=== PATIENT | male | born 1985 | race Two or more races ===

== ENCOUNTER 2024-10-08 17:25 | Emergency (ER) | payer BC ==
[2024-10-08] MEDS: Ketorolac 30 MG/ML SDV IM ONE (18:02)
[2024-10-08] MEDS: Orphenadrine 60 MG/2 ML Inj IM ONE (18:02)
== END 2024-10-08 21:18 | disposition home or self-care (01) ==
LOC: MW.ED 17:25
DX: M51.26 Other intervertebral disc displacement, lumbar region (principal); Z75.3 Unavailability and inaccessibility of health-care facilities
CPT/HCPCS: 72131; 96372; 99283; A9270; J1885; J2360; J8540; 99284